=== PATIENT | female | born 1950 | race Caucasian/White ===

== ENCOUNTER 2022-01-08 19:51 | Emergency (ER) | payer MEDICARE ==
[~2022-01-08] VITALS: Ht 157.5 cm; Wt 106.0 kg
[2022-01-08 19:55] VITALS: BP 160/82
[2022-01-08] MEDS ORDERED: ACETAMINOPHEN 325MG TABLET PO ONE (20:45)
[2022-01-08] MEDS ORDERED: LIDOCAINE HCL 1% 20ML VIAL (Pyxis) INJ INFIL ONE (20:45)
[2022-01-08] MEDS ORDERED: TETANUS, DIPHTHERIA, PERTUSSIS VAC/PF 0.5ML (>10YR OLD) IM ONE ×2 (20:45→22:00)
[2022-01-08] MEDS ORDERED: BACITRACIN ZINC OINT UDPKT TOP ONE (20:45)
[2022-01-08] MEDS ORDERED: ACET-2708 MT (23:09)
== END 2022-01-08 23:31 | disposition home or self-care (01) ==
LOC: ER 19:51 → EDBD 19:51 → ER 23:31
DX: S01.81XA Laceration without foreign body of other part of head, initial encounter (principal); S80.211A Abrasion, right knee, initial encounter; M23.8X1 Other internal derangements of right knee; W01.0XXA Fall on same level from slipping, tripping and stumbling without subsequent striking against object, initial encounter; Y93.89 Activity, other specified; Y92.89 Other specified places as the place of occurrence of the external cause; Y99.8 Other external cause status; I10 Essential (primary) hypertension; Z00.00 Encounter for general adult medical examination without abnormal findings; E11.9 Type 2 diabetes mellitus without complications; E03.9 Hypothyroidism, unspecified
CPT/HCPCS: 12011; 70450; 70486; 73564; 90471; 90715; 99284; J3490